=== PATIENT | female | born 1985 | race Caucasian/White ===

== ENCOUNTER 2019-01-22 13:45 | Emergency (ER) | payer BC ==
--- NOTE | 2019-01-22 15:33 | EDM.PDOC ---
ED HPI GENERAL MEDICAL PROBLEM - General Chief Complaint: Neurological Problem Stated Complaint: NUMBNESS ON L SIDE OF FACE Time Seen by Provider: 01/22/19 14:12 Source of Information: Reports: Patient History Limitations: Reports: No Limitations - History of Present Illness INITIAL COMMENTS - FREE TEXT/NARRATIVE: Pt is 33 yo F comes in today for new onset left-sided weakness/numbness of face x 4 hrs. She states she has never had anything like this. She feels that her face and lips feel "funny". She has not had any new changes in medication, and is currently on Lexapro. No h/o HTN, HLD or CVA. Grandmother does have h/o CVA "as she has gotten older". She denies any CRAIG, changes in vision, F/C, N/V/D, difficulty swallowing, difficulty walking, weakness to arms or legs, or any other symptoms at this time. 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 ED EXAM, NEURO - Physical Exam Exam: See Below Exam Limited By: No Limitations General Appearance: Alert, WD/WN, No Apparent Distress Eye Exam: Bilateral Eye: EOMI, Normal Inspection, PERRL Ears: Normal External Exam, Hearing Grossly Normal Nose: Normal Inspection, Normal Mucosa, No Blood Throat/Mouth: Normal Inspection, Normal Lips, Normal Teeth, Normal Gums, Normal Oropharynx, Normal Voice, No Airway Compromise Head Exam: Atraumatic, Normocephalic Neck: Normal Inspection, Supple, Non-Tender, Full Range of Motion Respiratory/Chest: No Respiratory Distress, Lungs Clear, Normal Breath Sounds, No Accessory Muscle Use, Chest Non-Tender Cardiovascular: Normal Peripheral Pulses, Regular Rate, Rhythm, No Edema, No Gallop, No JVD, No Murmur, No Rub GI/Abdominal: Normal Bowel Sounds, Soft, Non-Tender, No Organomegaly, No Distention, No Abnormal Bruit, No Mass Neurological: Alert, Normal Mood/Affect, Normal Dorsiflexion, CN II-XII Intact, Normal Plantar Flexion, Normal Gait, Normal Reflexes, No Motor/Sensory Deficits , Oriented x 3. No: Difficulty Walking Back Exam: Normal Inspection, Full Range of Motion, NT Extremities: Normal Inspection, Normal Range of Motion, Non-Tender, No Pedal Edema, Normal Capillary Refill Psychiatric: Normal Affect, Normal Mood Skin Exam: Warm, Dry, Intact, Normal Color, No Rash Course - Vital Signs Last Recorded V/S: Last Vital Signs Temp 98.4 F 01/22/19 14:04 Pulse 90 01/22/19 14:04 Resp 13 01/22/19 14:04 BP 141/76 H 01/22/19 14:04 Pulse Ox 100 01/22/19 14:04 Departure - Departure Time of Disposition: 15:28 Disposition: Home, Self-Care 01 Condition: Good Clinical Impression: Numbness and tingling of left side of face - Discharge Information *PRESCRIPTION DRUG MONITORING PROGRAM REVIEWED*: Not Applicable *COPY OF PRESCRIPTION DRUG MONITORING REPORT IN PATIENT CARLIE: Not Applicable Instructions: Paresthesia, [id number] Referrals: PCP,None [Primary Care Provider] - Forms: ED Department Discharge Additional Instructions: You were seen in the ED today for left sided weakness/numbness of the face. Your physical exam here was benign, there were no concerns for an acute emergency such as stroke, Ren's Palsy, or infection. At this time, it is recommended you follow up with your primary care provider, Dr. Estes, and staff educator if any changes in vision. Also recommend staying hydrated, with water and/or Gatorade, as sometimes electrolyte imbalances can cause symptoms like this. Please return to ED if new or worsening symptoms.
== END 2019-01-22 15:44 | disposition home or self-care (01) ==
LOC: JD.ED 13:45
DX: R20.2 Paresthesia of skin (principal); R20.0 Anesthesia of skin; Z79.899 Other long term (current) drug therapy
CPT/HCPCS: 99282; 99283

== ENCOUNTER 2020-11-03 07:19 | Inpatient (IN) | payer BC ==
[2020-11-09] MEDS ORDERED: Bupivacaine 0.25% 10 ML SDV ONE
[2020-11-09] MEDS ORDERED: Ampicillin 2 GM in Sodium Chloride 0.9% 100 ML IV ONE (07:49)
[2020-11-09] MEDS ORDERED: Nalbuphine 10 MG/1 ML Vial IVPUSH PRN (07:49)
[2020-11-09] MEDS ORDERED: Ondansetron 4 MG/2 ML SDV IVPUSH PRN ×2 (07:49→10:04)
[2020-11-09] MEDS ORDERED: Sodium Chloride 0.9% 10 ML Syringe FLUSH PRN (07:49)
[2020-11-09] MEDS ORDERED: Oxytocin/Lactated Ringers 10 UNIT/1,000 ML BAG IV SCH ×2 (08:00)
--- NOTE | 2020-11-09 08:33 | PCM.LDHP ---
L&D History of Present Illness - General Date of Service: 11/09/20 Admit Problem/Dx: Patient Status Order with Admit Dx/Problem 11/09/20 07:49 Patient Status [ADT] Routine Admission Diagnosis/Problem Admission Diagnosis/Problem Source of Information: Patient History Limitations: Reports: No Limitations - History of Present Illness Introduction:: Patient is a 35 y/o at 40 6/7 wks who presents for elective IOL. Doing well. 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 (Approximate): Psychiatric History: Reports: Depression - Past Surgical History HEENT Surgical History: Reports: Oral Surgery Social & Family History - Tobacco Use Tobacco Use Status *Q: Never Tobacco User - Caffeine Use Caffeine Use: Reports: Coffee - Alcohol Use Alcohol Use History: No - Recreational Drug Use Recreational Drug Use: No H&P Review of Systems - Review of Systems: Review Of Systems: See Below General: Reports: No Symptoms Pulmonary: Reports: No Symptoms Cardiovascular: Reports: No Symptoms Gastrointestinal: Reports: No Symptoms Genitourinary: Reports: No Symptoms Musculoskeletal: Reports: No Symptoms Psychiatric: Reports: No Symptoms Neurological: Reports: No Symptoms L&D Exam - Exam Exam: See Below - OB Specific Contraction Intensity: Mild Movement: Active Heart Tones: Present Heart Tones per Min: 145 Heart Rate (FHR) Variability: Moderate (6-25 bmp) Presentation: Vertex - Morris Score Morris Score Cervix Position: Midposition Morris Score Consistency: Medium Morris Score Effacement: 31-50% Morris Score Dilation: 1-2 cm Morris Score 's Station: -3 Morris Score Total: 4 - Exam General: Alert, Oriented, Cooperative Lungs: Clear to Auscultation, Normal Respiratory Effort Cardiovascular: Regular Rate, Regular Rhythm GI/Abdominal Exam: Soft, Non-Tender Genitourinary: Normal external exam Extremities: Normal Inspection Skin: Warm, Dry, Intact - Patient Data Lab Results Last 24 hrs: Laboratory Results - last 24 hr 11/09/20 Range/Units 08:02 WBC 11.55 H (3.98-10.04) K/mm3 RBC 4.04 (3.98-5.22) M/mm3 Hgb 11.5 (11.2-15.7) gm/dl Hct 36.0 (34.1-44.9) % MCV 89.1 (79.4-94.8) fl MCH 28.5 (25.6-32.2) pg MCHC 31.9 L (32.2-35.5) g/dl RDW Std Deviation 47.6 H (36.4-46.3) fL Plt Count 289 (182-369) K/mm3 MPV 11.1 (9.4-12.3) fl Neut % (Auto) 69.2 (34.0-71.1) % Lymph % (Auto) 22.3 (19.3-51.7) % [place] % (Auto) 6.5 (4.7-12.5) % Eos % (Auto) 1.4 (0.7-5.8) Baso % (Auto) 0.2 (0.1-1.2) % Neut # (Auto) 8.00 H (1.56-6.13) K/mm3 Lymph # (Auto) 2.57 (1.18-3.74) K/mm3 [place] # (Auto) 0.75 H (0.24-0.36) K/mm3 Eos # (Auto) 0.16 (0.04-0.36) K/mm3 Baso # (Auto) 0.02 (0.01-0.08) K/mm3 Result Diagrams: 11/09/20 08:02 - Problem List (1) Post-dates SNOMED Code(s): 09729650 ICD Code: O48.0 - POST-TERM Status: Acute Current Visit: Yes (2) GBS (group B Streptococcus carrier), +RV culture, currently SNOMED Code(s): 4687581319575, 728533554, 1382625541863 ICD Code: O99.820 - STREPTOCOCCUS B CARRIER STATE COMPLICATING Status: Acute Current Visit: Yes Problem List Initiated/Reviewed/Updated: Yes Orders Last 24hrs: Active Orders 24 hr Category Date Time Status Patient Status [ADT] Routine ADT 11/09/20 07:49 Active Activity as Tolerated [RC] PFP Care 11/09/20 07:49 Active Communication Order [RC] ASDIRECTED Care 11/09/20 07:49 Active Heart Tones [RC] ASDIRECTED Care 11/09/20 07:50 Active Non Stress Test [RC] PER UNIT ROUTINE Care 11/09/20 07:49 Active Notify Provider [RC] PFP Care 11/09/20 07:49 Active Notify Provider [RC] PRN Care 11/09/20 07:49 Active Peripheral IV Care [RC] . DIRECTED Care 11/09/20 07:50 Active Pump Management, Intrathecal [RC] ASDIRECTED Care 11/09/20 07:50 Active Vital Signs [RC] PER UNIT ROUTINE Care 11/09/20 07:49 Active Regular Diet [DIET] Diet 11/09/20 Breakfast Active BLOOD BANK HOLD SPECIMEN [BBK] Stat Lab 11/09/20 08:02 Received CORONAVIRUS COVID-19 CHRISTIANO [MOLEC] Stat Lab 11/09/20 07:54 Ordered RAPID PLASMA REAGIN,RPR [CHEM] Routine Lab 11/09/20 08:02 Received Ampicillin 1 gm Med 11/09/20 12:00 Active Sodium Chloride 0.9% [Normal Saline] 100 ml IV Q4H Lactated Ringers [Ringers, Lactated] 1,000 ml Med 11/09/20 08:00 Active IV ASDIRECTED Nalbuphine [Nubain] Med 11/09/20 07:49 Active 10 mg IVPUSH Q2H PRN Ondansetron [Zofran] Med 11/09/20 07:49 Active 4 mg IVPUSH Q4H PRN Oxytocin/Lactated Ringers [Pitocin in LR 10 Units/1,000 Med 11/09/20 08:00 Active ML] 10 unit in 1,000 ml IV .CONTINUOUS Oxytocin/Lactated Ringers [Pitocin in LR 10 Units/1,000 Med 11/09/20 08:00 Active ML] 10 unit in 1,000 ml IV TITRATE Sodium Chloride 0.9% [Saline Flush] Med 11/09/20 07:49 Active 10 ml FLUSH ASDIRECTED PRN Electronic Heart Tones Ext w TOCO [WOMSER] Oth 11/09/20 07:49 Ordered Routine Electronic Heart Tones Internal [WOMSER] Per Unit Oth 11/09/20 07:49 Ordered Routine Peripheral IV Insertion Adult [OM.PC] Routine Oth 11/09/20 07:49 Ordered Resuscitation Status Routine Resus Stat 11/09/20 07:49 Ordered Medication Orders Ampicillin Sodium 1 gm/ Sodium (Chloride) 100 mls @ 200 mls/hr IV Q4H SUZANNE Oxytocin/Lactated Ringer's (Pitocin In Lr 10 Units/1,000 Ml) 10 unit in 1,000 mls @ 12 mls/hr IV TITRATE SUZANNE; Protocol Oxytocin/Lactated Ringer's (Pitocin In Lr 10 Units/1,000 Ml) 10 unit in 1,000 mls @ 100 mls/hr IV .CONTINUOUS SUZANNE Lactated Ringer's (Ringers, Lactated) 1,000 mls @ 100 mls/hr IV ASDIRECTED SUZANNE Nalbuphine HCl (Nubain) 10 mg IVPUSH Q2H PRN PRN Reason: Pain Ondansetron HCl (Zofran) 4 mg IVPUSH Q4H PRN PRN Reason: Nausea/Vomiting Sodium Chloride (Saline Flush) 10 ml FLUSH ASDIRECTED PRN PRN Reason: Keep Vein Open Assessment/Plan Comment:: * Labs done * GBS positive, start ampicillin * Pitocin and ROM for IOL * Pain management per patient preference * Anticipate
[2020-11-09] MEDS: Lactated Ringers 1,000 ML IV SCH ×3 (09:15→15:25)
[2020-11-09] MEDS ORDERED: Ampicillin 2 GM AdvVial IV ONE (09:16)
[2020-11-09] MEDS ORDERED: Lactated Ringers 1,000 ML ONE (09:17)
[2020-11-09] MEDS ORDERED: fentaNYL 100 MCG/2 ML SDV EPIDUR PRN (10:04)
[2020-11-09] MEDS ORDERED: ePHEDrine 50 MG/ML SDV IVPUSH PRN (10:04)
--- NOTE | 2020-11-09 10:08 | PCM.PREANE ---
Preanesthetic Assessment - Procedure Proposed Procedure: Epidural - Anesthesia/Transfusion/Family Hx Anesthesia History: Prior Anesthesia Reaction Type of Anesthesia Reaction: Excessive Nausea/Vomiting Family History of Anesthesia Reaction: No Transfusion History: No Prior Transfusion(s) Intubation History: Unknown - Review of Systems General: No Symptoms Pulmonary: No Symptoms Cardiovascular: No Symptoms Gastrointestinal: No Symptoms (GERD) Neurological: No Symptoms Other: Reports: None - Physical Assessment NPO Status Date: 11/09/20 NPO Status Time: 10:00 Vital Signs: HR: 64 Sat: 99% B/P: 128/81 Resp: 20 Temp: 99.4 Height: 1.68 m Weight: 108.862 kg ASA Class: 2 Mental Status: Alert & Oriented x3 Airway Class: Mallampati = 3 Dentition: Reports: Normal Dentition, Caries Thyro-Mental Finger Breadths: 3 Mouth Opening Finger Breadths: 3 ROM/Head Extension: Full Lungs: Clear to Auscultation, Normal Respiratory Effort Cardiovascular: Regular Rate, Regular Rhythm, No Murmurs - Lab Values: Laboratory Last Values WBC 11.55 K/mm3 (3.98-10.04) H 11/09/20 08:02 RBC 4.04 M/mm3 (3.98-5.22) 11/09/20 08:02 Hgb 11.5 gm/dl (11.2-15.7) 11/09/20 08:02 Hct 36.0 % (34.1-44.9) 11/09/20 08:02 MCV 89.1 fl (79.4-94.8) 11/09/20 08:02 MCH 28.5 pg (25.6-32.2) 11/09/20 08:02 MCHC 31.9 g/dl (32.2-35.5) L 11/09/20 08:02 RDW Std Deviation 47.6 fL (36.4-46.3) H 11/09/20 08:02 Plt Count 289 K/mm3 (182-369) 11/09/20 08:02 MPV 11.1 fl (9.4-12.3) 11/09/20 08:02 Neut % (Auto) 69.2 % (34.0-71.1) 11/09/20 08:02 Lymph % (Auto) 22.3 % (19.3-51.7) 11/09/20 08:02 [place] % (Auto) 6.5 % (4.7-12.5) 11/09/20 08:02 Eos % (Auto) 1.4 (0.7-5.8) 11/09/20 08:02 Baso % (Auto) 0.2 % (0.1-1.2) 11/09/20 08:02 Neut # (Auto) 8.00 K/mm3 (1.56-6.13) H 11/09/20 08:02 Lymph # (Auto) 2.57 K/mm3 (1.18-3.74) 11/09/20 08:02 [place] # (Auto) 0.75 K/mm3 (0.24-0.36) H 11/09/20 08:02 Eos # (Auto) 0.16 K/mm3 (0.04-0.36) 11/09/20 08:02 Baso # (Auto) 0.02 K/mm3 (0.01-0.08) 11/09/20 08:02 SARS-CoV-2 RNA (CHRISTIANO) Negative (NEGATIVE) 11/09/20 08:45 Above labs reviewed and noted and within acceptable ranges to proceed with epidural. 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: - Past Surgical History HEENT Surgical History: Reports: Oral Surgery - HOME MEDS Home Medications: Home Meds Pnv No.95/Ferrous Fum/Folic AC [ Tablet] 1 tab PO DAILY 11/09/20 [History] - CURRENT (IN HOUSE) MEDS Current Meds: Current Medications Oxytocin/Lactated Ringer's (Pitocin In Lr 10 Units/1,000 Ml) 10 unit in 1,000 mls @ 12 mls/hr IV TITRATE SUZANNE; Protocol Oxytocin/Lactated Ringer's (Pitocin In Lr 10 Units/1,000 Ml) 10 unit in 1,000 mls @ 100 mls/hr IV .CONTINUOUS SUZANNE Lactated Ringer's (Ringers, Lactated) 1,000 mls @ 100 mls/hr IV ASDIRECTED SUZANNE Last Admin: 11/09/20 09:15 Dose: 100 mls/hr Documented by: Ampicillin Sodium 1 gm/ Sodium (Chloride) 100 mls @ 200 mls/hr IV Q4H [facility] Nalbuphine HCl (Nubain) 10 mg IVPUSH Q2H PRN PRN Reason: Pain Ondansetron HCl (Zofran) 4 mg IVPUSH Q4H PRN PRN Reason: Nausea/Vomiting Sodium Chloride (Saline Flush) 10 ml FLUSH ASDIRECTED PRN PRN Reason: Keep Vein Open Discontinued Medications Ampicillin Sodium 2 gm/ Sodium (Chloride) 100 mls @ 200 mls/hr IV ONETIME ONE Stop: 11/09/20 08:18 Last Admin: 11/09/20 09:15 Dose: 200 mls/hr Documented by: Ampicillin Sodium 1 gm/ Sodium (Chloride) 100 mls @ 200 mls/hr IV Q4H [facility]
[2020-11-09] MEDS ORDERED: Bupivacaine/fentaNYL/NS 100 ML Bag EPIDUR SCH (10:15)
[2020-11-09] MEDS ORDERED: Ampicillin 1 GM in Sodium Chloride 0.9% 100 ML IV SCH (12:00)
[2020-11-09] MEDS: Ampicillin 1 GM in Sodium Chloride 0.9% 100 ML IV SCH (13:05)
--- NOTE | 2020-11-09 17:36 | PCM.DEL ---
L & D Note - General Info Date of Service: 11/09/20 - Delivery Note Labor: Induced by ARM, Induced by Oxytocin Delivery Outcome: Livebirth Infant Delivery Method: Spontaneous Vaginal Delivery-Single Infant Delivery Mode: Spontaneous Presentation: Right Occiput Posterior (ROP) Nuchal Cord: Present Anesthesia Type: Epidural Amniotic Fluid Description: Clear Episiotomy Type: None Laceration: None Placenta: Intact, Spontaneous Cord: 3 Vessels Estimated Blood Loss: 100 Resuscitation Needed: Yes : Bulb Syringe, Stimulated, Warmed, [place] Used, Warmer Used Delivery Comments (Free Text/Narrative):: The patient was pushing in the dorsal lithotomy position. Sterile vaginal exam complete/complete/+3 station. head thought to be in JESSICA presentation. Maternal pushing effort was good and the pelvis was felt to be adequate for an instrument assisted delivery. Given recurrent deep variables into the 60's the decision was made to proceed with vacuum assisted vaginal delivery. The mushroom cup was placed without difficulty with care to avoid the vaginal side bailey. Application at 1714. Total pressure applied 550 mm Hg. Total pop offs : 2. Suction was removed following delivery of the head. . The remainder of the delivered without difficulty at 1717. Body nuchal reduced. Infant placed on maternal abdomen. Cord clamped and cut. Cord gas segment obtained. Cord blood obtained. Placenta allowed time to separate and expelled intact. Inspection of the perineum following delivery with no lacerations noted Vacuum Extractor Progress Note - Alternative Labor Strategies Considered Alternative Labor Strategies Considered:: Reports: Yes Strategies Considered:: Reports: Contraction Intensity Adequate Indications Considered:: Reports: Yes Indications:: Reports: Suspicion of Immediate or Potential Compromise Time Out:: Reports: Yes - Patient Prepared Patient Prepared:: Reports: Yes Informed Consent:: Reports: Verbal Risks: Reports: Yes Risks Include:: Reports: Laceration, Shoulder Dystocia, Maternal Injury Anesthesia/Analgesia Adequate:: Reports: Yes - Probability of Success High Probability of Success:: Reports: Yes Weight Estimated:: Reports: AGA Patient Diabetic:: Reports: No Pelvis Adequate:: Reports: Yes Position:: Thought to be JESSICA - was ROP Asynclitic:: Reports: No Station:: +3 - Application Time Maximum Application Time & Number of Pop-Offs Predetermined:: Reports: Yes Maximum Pressure Maintained in [place] (cm Hg):: 550 Total Application Time (min): *max=20min: 4 Number of Times Cup Disengaged:: 2 Type of Vacuum Used:: Reports: Cup: Mushroom type Vacuum Extraction: Successful - Exit Strategy Exit strategy available:: Reports: Yes and resuscitation teams readily available:: Reports: No - General Info Date of Service: 11/09/20 - Patient Data Vitals - Most Recent: Last Vital Signs Temp 36.6 C 11/09/20 09:26 Pulse 64 11/09/20 09:26 Resp 13 11/09/20 09:26 BP 128/81 11/09/20 09:26 Pulse Ox 99 11/09/20 09:26 Weight - Most Recent: 108.862 kg I&O - Last 24 Hours: Intake & Output 11/09/20 11/09/20 11/09/20 06:59 14:59 22:59 Intake Total 1460 Balance 1460 - Problem List & Annotations (1) Post-dates SNOMED Code(s): 33346766 Code(s): O48.0 - POST-TERM Status: Acute Current Visit: Yes (2) GBS (group B Streptococcus carrier), +RV culture, currently SNOMED Code(s): 9283314743635, 691341197, 1799381479861 Code(s): O99.820 - STREPTOCOCCUS B CARRIER STATE COMPLICATING Status: Acute Current Visit: Yes (3) Vacuum-assisted vaginal delivery SNOMED Code(s): 35574211531998921 Code(s): Z37.9 - OUTCOME OF DELIVERY, UNSPECIFIED Status: Acute Current Visit: Yes - Problem List Review Problem List Initiated/Reviewed/Updated: Yes - My Orders Last 24 Hours: My Active Orders 11/09/20 Breakfast Regular Diet [DIET] 11/09/20 07:49 Patient Status [ADT] Routine Activity as Tolerated [RC] PFP Communication Order [RC] ASDIRECTED Non Stress Test [RC] PER UNIT ROUTINE Notify Provider [RC] PFP Notify Provider [RC] PRN Vital Signs [RC] PER UNIT ROUTINE Nalbuphine [Nubain] 10 mg IVPUSH Q2H PRN Ondansetron [Zofran] 4 mg IVPUSH Q4H PRN Sodium Chloride 0.9% [Saline Flush] 10 ml FLUSH ASDIRECTED PRN Electronic Heart Tones Ext w TOCO [WOMSER] Routine Electronic Heart Tones Internal [WOMSER] Per Unit Routine Peripheral IV Insertion Adult [OM.PC] Routine Resuscitation Status Routine 11/09/20 07:50 Heart Tones [RC] ASDIRECTED Peripheral IV Care [RC] . DIRECTED Pump Management, Intrathecal [RC] ASDIRECTED 11/09/20 08:00 Lactated Ringers [Ringers, Lactated] 1,000 ml IV ASDIRECTED Oxytocin/Lactated Ringers [Pitocin in LR 10 Units/1,000 ML] 10 unit in 1,000 ml IV .CONTINUOUS Oxytocin/Lactated Ringers [Pitocin in LR 10 Units/1,000 ML] 10 unit in 1,000 ml IV TITRATE 11/09/20 08:02 BLOOD BANK HOLD SPECIMEN [BBK] Stat RAPID PLASMA REAGIN,RPR [CHEM] Routine 11/09/20 13:00 Ampicillin 1 gm Sodium Chloride 0.9% [Normal Saline] 100 ml IV Q4H - Assessment Assessment:: PPD#0 - Plan Plan:: * Routine cares * Breast feeding * Discharge home in 1-2 days
[2020-11-09] MEDS ORDERED: Witch Hazel Medicated Pads 40/Jar TOP PRN (18:52)
[2020-11-09] MEDS ORDERED: Acetaminophen 325 MG Tab PO PRN (18:52)
[2020-11-09] MEDS ORDERED: Ibuprofen 600 MG Tab PO PRN (18:52)
[2020-11-09] MEDS ORDERED: Benzocaine/Menthol 20%-0.5% Spray 56 GM Canister TOP PRN (18:52)
[2020-11-10] MEDS: Ampicillin 1 GM in Sodium Chloride 0.9% 100 ML IV SCH (04:12)
--- NOTE | 2020-11-10 06:59 | PCM.PNPP ---
- General Info Date of Service: 11/10/20 Functional Status: Reports: Pain Controlled, Tolerating Diet, Ambulating, Urinating - Review of Systems General: Reports: No Symptoms Pulmonary: Reports: No Symptoms Cardiovascular: Reports: No Symptoms Gastrointestinal: Reports: No Symptoms Genitourinary: Reports: No Symptoms Musculoskeletal: Reports: No Symptoms - General Info Date of Service: 11/10/20 - Patient Data Vital Signs - Most Recent: Last Vital Signs Temp 36.8 C 11/10/20 03:29 Pulse 67 11/10/20 03:29 Resp 14 11/10/20 03:29 BP 126/74 11/10/20 03:29 Pulse Ox 97 11/10/20 03:29 Weight - Most Recent: 108.862 kg I&O - Last 24 Hours: Intake & Output 11/09/20 11/09/20 11/10/20 14:59 22:59 06:59 Intake Total 1460 Balance 1460 Lab Results - Last 24 Hours: Laboratory Results - last 24 hr 11/09/20 11/09/20 11/09/20 Range/Units 08:02 08:02 08:45 WBC 11.55 H (3.98-10.04) K/mm3 RBC 4.04 (3.98-5.22) M/mm3 Hgb 11.5 (11.2-15.7) gm/dl Hct 36.0 (34.1-44.9) % MCV 89.1 (79.4-94.8) fl MCH 28.5 (25.6-32.2) pg MCHC 31.9 L (32.2-35.5) g/dl RDW Std Deviation 47.6 H (36.4-46.3) fL Plt Count 289 (182-369) K/mm3 MPV 11.1 (9.4-12.3) fl Neut % (Auto) 69.2 (34.0-71.1) % Lymph % (Auto) 22.3 (19.3-51.7) % [place] % (Auto) 6.5 (4.7-12.5) % Eos % (Auto) 1.4 (0.7-5.8) Baso % (Auto) 0.2 (0.1-1.2) % Neut # (Auto) 8.00 H (1.56-6.13) K/mm3 Lymph # (Auto) 2.57 (1.18-3.74) K/mm3 [place] # (Auto) 0.75 H (0.24-0.36) K/mm3 Eos # (Auto) 0.16 (0.04-0.36) K/mm3 Baso # (Auto) 0.02 (0.01-0.08) K/mm3 RPR Non-reactive (NONREACTIVE) SARS-CoV-2 RNA (CHRISTIANO) Negative (NEGATIVE) Med Orders - Current: Current Medications Acetaminophen (Tylenol) 650 mg PO Q4H PRN PRN Reason: mild pain or fever Benzocaine/Menthol (Dermoplast Pain Relief [place]) 0 gm TOP ASDIRECTED PRN PRN Reason: Perineal Comfort Measure Last Admin: 11/09/20 19:55 Dose: 1 can Documented by: Ibuprofen (Motrin) 600 mg PO Q6H PRN PRN Reason: Mild pain or fever Witch Frank (Tucks) 1 pad TOP ASDIRECTED PRN PRN Reason: Perineal Comfort Measure Last Admin: 11/09/20 19:54 Dose: 1 tub Documented by: Discontinued Medications Ampicillin Sodium (Ampicillin) Confirm Administered Dose 2 gm IV .STK-MED ONE Stop: 11/09/20 09:17 Last Admin: 11/09/20 10:56 Dose: Not Given Documented by: Ephedrine Sulfate (Ephedrine Sulfate) 5 mg IVPUSH ASDIRECTED PRN PRN Reason: Hypotension Fentanyl (Sublimaze) 100 mcg EPIDUR Q3H PRN PRN Reason: Pain Last Admin: 11/09/20 13:53 Dose: 100 mcg Documented by: Fentanyl/Bupivacaine HCl (Fentanyl/Bupivacaine/Ns 2 Mcg-0.125% 100 Ml) 100 ml EPIDUR ASDIRECTED SUZANNE Last Admin: 11/09/20 13:53 Dose: 100 ml Documented by: Ampicillin Sodium 2 gm/ Sodium (Chloride) 100 mls @ 200 mls/hr IV ONETIME ONE Stop: 11/09/20 08:18 Last Admin: 11/09/20 09:15 Dose: 200 mls/hr Documented by: Ampicillin Sodium 1 gm/ Sodium (Chloride) 100 mls @ 200 mls/hr IV Q4H SUZANNE Oxytocin/Lactated Ringer's (Pitocin In Lr 10 Units/1,000 Ml) 10 unit in 1,000 mls @ 12 mls/hr IV TITRATE SUZANNE; Protocol Last Titration: 11/09/20 17:17 Dose: 999 munits/min, 5,994 mls/hr Documented by: Oxytocin/Lactated Ringer's (Pitocin In Lr 10 Units/1,000 Ml) 10 unit in 1,000 mls @ 100 mls/hr IV .CONTINUOUS SUZANNE Lactated Ringer's (Ringers, Lactated) 1,000 mls @ 100 mls/hr IV ASDIRECTED SUZANNE Last Admin: 11/09/20 15:25 Dose: 100 mls/hr Documented by: Ampicillin Sodium 1 gm/ Sodium (Chloride) 100 mls @ 200 mls/hr IV Q4H SUZANNE Last Admin: 11/10/20 04:12 Dose: Not Given Documented by: Lactated Ringer's (Ringers, Lactated) Confirm Administered Dose 1,000 mls @ as directed .ROUTE .STK-MED ONE Stop: 11/09/20 09:18 Last Admin: 11/09/20 10:56 Dose: Not Given Documented by: Miscellaneous Medication (Phenylephrine 1 Mg/10 Ml-Ns) 0 mg IVPUSH ONETIME ONE Stop: 11/09/20 10:05 Last Admin: 11/10/20 04:12 Dose: Not Given Documented by: Nalbuphine HCl (Nubain) 10 mg IVPUSH Q2H PRN PRN Reason: Pain Ondansetron HCl (Zofran) 4 mg IVPUSH Q4H PRN PRN Reason: Nausea/Vomiting Ondansetron HCl (Zofran) 4 mg IVPUSH ONETIME PRN PRN Reason: Nausea/Vomiting Sodium Chloride (Saline Flush) 10 ml FLUSH ASDIRECTED PRN PRN Reason: Keep Vein Open - Interaction Infant Disposition, : in Room with Family Infant Interaction: Holding Feeding: Attempted ; Nursed Fair/Poor Support Person: - Recovery Exam Fundal Tone: Firm Fundal Level: 1 Fingerbreadths Below Umbilicus Fundal Placement: Midline Lochia Amount: Small Lochia Color: Rubra/Red Perineum Description: Edematous Episiotomy/Laceration: None Bladder Status: Voiding Urinary Elimination: Voided - Exam General: Alert, Oriented, Cooperative GI/Abdominal Exam: Soft, Non-Tender Extremities: Normal Inspection Skin: Warm, Dry, Intact - Problem List & Annotations (1) Post-dates SNOMED Code(s): 01609084 Code(s): O48.0 - POST-TERM Status: Acute Current Visit: Yes (2) GBS (group B Streptococcus carrier), +RV culture, currently SNOMED Code(s): 4425181008447, 605852475, 6297128983930 Code(s): O99.820 - STREPTOCOCCUS B CARRIER STATE COMPLICATING Status: Acute Current Visit: Yes (3) Vacuum-assisted vaginal delivery SNOMED Code(s): 34729015677655199 Code(s): Z37.9 - OUTCOME OF DELIVERY, UNSPECIFIED Status: Acute Current Visit: Yes - Problem List Review Problem List Initiated/Reviewed/Updated: Yes - My Orders Last 24 Hours: My Active Orders 11/09/20 07:49 Resuscitation Status Routine 11/09/20 08:02 BLOOD BANK HOLD SPECIMEN [BBK] Stat 11/09/20 Dinner Regular Diet [DIET] 11/09/20 18:52 Acetaminophen [TylenoL] 650 mg PO Q4H PRN Benzocaine/Menthol [Dermoplast Pain Relief [place]] See Dose Instructions TOP ASDIRECTED PRN Ibuprofen [Motrin] 600 mg PO Q6H PRN witch Frank [Tucks] 1 pad TOP ASDIRECTED PRN Heat Therapy [OM.PC] PRN 11/09/20 18:52 Activity as Tolerated [RC] PER UNIT ROUTINE Vital Signs [RC] 03,09,15,21 Assess Lochia [WOMSER] Per Unit Routine Assess Uterine Involution [WOMSER] Per Unit Routine Breast Pump [WOMSER] Per Unit Routine Ice Therapy [OM.PC] Per Unit Routine Perineal Care [OM.PC] Per Unit Routine Peripheral IV Discontinue [OM.PC] Routine Sitz Bath [OM.PC] Per Unit Routine 11/10/20 06:58 Ready for Discharge [RC] PER UNIT ROUTINE 11/10/20 18:52 Heat Therapy [OM.PC] PRN - Assessment Assessment:: PPD#1 - Plan Plan:: * Routine cares * Breast feeding * Discharge home today
--- NOTE | 2020-11-10 06:59 | PCM.DCSUM1 ---
Discharge Summary - Discharge Data Discharge Date: 11/10/20 Discharge Disposition: Home, Self-Care 01 Condition: Good - Referral to Home Health Primary Care Physician: María Sampson MD - Discharge Diagnosis/Problem(s) (1) Post-dates SNOMED Code(s): 58261601 ICD Code: O48.0 - POST-TERM Status: Acute Current Visit: Yes (2) GBS (group B Streptococcus carrier), +RV culture, currently SNOMED Code(s): 7130521310554, 652717350, 2965590591862 ICD Code: O99.820 - STREPTOCOCCUS B CARRIER STATE COMPLICATING Status: Acute Current Visit: Yes (3) Vacuum-assisted vaginal delivery SNOMED Code(s): 15306610497595180 ICD Code: Z37.9 - OUTCOME OF DELIVERY, UNSPECIFIED Status: Acute Current Visit: Yes - Patient Summary/Data Complications: None Consults: None Recommended Follow-up Testing/Procedures: Follow up in 3 weeks for check Hospital Course: 35 y/o at 40 6/7 wks who presented for post dates IOL. This was done with pitocin and AROM. Progressed well. Underwent a VAVD for recurrent variable decelerations. This was uncomplicated. See note. did well and was discharged home on PPD#1 - Patient Instructions Diet: Regular Diet as Tolerated Activity: As Tolerated Activity, Other: Pelvic rest for 6 weeks Driving: May Drive Today Showering/Bathing: May Shower Showering/Bathing, Other: May Bathe Notify Provider of: Fever, Increased Pain, Swelling and Redness, Drainage, Nausea and/or Vomiting - Discharge Plan *PRESCRIPTION DRUG MONITORING PROGRAM REVIEWED*: No *COPY OF PRESCRIPTION DRUG MONITORING REPORT IN PATIENT CARLIE: No Home Medications: Home Meds Pnv No.95/Ferrous Fum/Folic AC [ Tablet] 1 tab PO DAILY 11/09/20 [History] Ibuprofen [Motrin] 600 mg PO Q6H PRN tablet 11/10/20 [Rx] Referrals: María Sampson MD [Primary Care Provider] - (3 weeks for check - can be telehealth ) - Discharge Summary/Plan Comment DC Time >30 min.: No - Patient Data Vitals - Most Recent: Last Vital Signs Temp 36.8 C 11/10/20 03:29 Pulse 67 11/10/20 03:29 Resp 14 11/10/20 03:29 BP 126/74 11/10/20 03:29 Pulse Ox 97 11/10/20 03:29 Weight - Most Recent: 108.862 kg I&O - Last 24 hours: Intake & Output 11/09/20 11/09/20 11/10/20 14:59 22:59 06:59 Intake Total 1460 Balance 1460 Lab Results - Last 24 hrs: Laboratory Results - last 24 hr 11/09/20 11/09/20 11/09/20 Range/Units 08:02 08:02 08:45 WBC 11.55 H (3.98-10.04) K/mm3 RBC 4.04 (3.98-5.22) M/mm3 Hgb 11.5 (11.2-15.7) gm/dl Hct 36.0 (34.1-44.9) % MCV 89.1 (79.4-94.8) fl MCH 28.5 (25.6-32.2) pg MCHC 31.9 L (32.2-35.5) g/dl RDW Std Deviation 47.6 H (36.4-46.3) fL Plt Count 289 (182-369) K/mm3 MPV 11.1 (9.4-12.3) fl Neut % (Auto) 69.2 (34.0-71.1) % Lymph % (Auto) 22.3 (19.3-51.7) % [place] % (Auto) 6.5 (4.7-12.5) % Eos % (Auto) 1.4 (0.7-5.8) Baso % (Auto) 0.2 (0.1-1.2) % Neut # (Auto) 8.00 H (1.56-6.13) K/mm3 Lymph # (Auto) 2.57 (1.18-3.74) K/mm3 [place] # (Auto) 0.75 H (0.24-0.36) K/mm3 Eos # (Auto) 0.16 (0.04-0.36) K/mm3 Baso # (Auto) 0.02 (0.01-0.08) K/mm3 RPR Non-reactive (NONREACTIVE) SARS-CoV-2 RNA (CHRISTIANO) Negative (NEGATIVE) Med Orders - Current: Current Medications Acetaminophen (Tylenol) 650 mg PO Q4H PRN PRN Reason: mild pain or fever Benzocaine/Menthol (Dermoplast Pain Relief [place]) 0 gm TOP ASDIRECTED PRN PRN Reason: Perineal Comfort Measure Last Admin: 11/09/20 19:55 Dose: 1 can Documented by: Ibuprofen (Motrin) 600 mg PO Q6H PRN PRN Reason: Mild pain or fever Witch Rosmery (Tucks) 1 pad TOP ASDIRECTED PRN PRN Reason: Perineal Comfort Measure Last Admin: 11/09/20 19:54 Dose: 1 tub Documented by: Discontinued Medications Ampicillin Sodium (Ampicillin) Confirm Administered Dose 2 gm IV .STK-MED ONE Stop: 11/09/20 09:17 Last Admin: 11/09/20 10:56 Dose: Not Given Documented by: Ephedrine Sulfate (Ephedrine Sulfate) 5 mg IVPUSH ASDIRECTED PRN PRN Reason: Hypotension Fentanyl (Sublimaze) 100 mcg EPIDUR Q3H PRN PRN Reason: Pain Last Admin: 11/09/20 13:53 Dose: 100 mcg Documented by: Fentanyl/Bupivacaine HCl (Fentanyl/Bupivacaine/Ns 2 Mcg-0.125% 100 Ml) 100 ml EPIDUR ASDIRECTED SUZANNE Last Admin: 11/09/20 13:53 Dose: 100 ml Documented by: Ampicillin Sodium 2 gm/ Sodium (Chloride) 100 mls @ 200 mls/hr IV ONETIME ONE Stop: 11/09/20 08:18 Last Admin: 11/09/20 09:15 Dose: 200 mls/hr Documented by: Ampicillin Sodium 1 gm/ Sodium (Chloride) 100 mls @ 200 mls/hr IV Q4H SUZANNE Oxytocin/Lactated Ringer's (Pitocin In Lr 10 Units/1,000 Ml) 10 unit in 1,000 mls @ 12 mls/hr IV TITRATE SUZANNE; Protocol Last Titration: 11/09/20 17:17 Dose: 999 munits/min, 5,994 mls/hr Documented by: Oxytocin/Lactated Ringer's (Pitocin In Lr 10 Units/1,000 Ml) 10 unit in 1,000 mls @ 100 mls/hr IV .CONTINUOUS SUZANNE Lactated Ringer's (Ringers, Lactated) 1,000 mls @ 100 mls/hr IV ASDIRECTED SUZANNE Last Admin: 11/09/20 15:25 Dose: 100 mls/hr Documented by: Ampicillin Sodium 1 gm/ Sodium (Chloride) 100 mls @ 200 mls/hr IV Q4H [facility] Last Admin: 11/10/20 04:12 Dose: Not Given Documented by: Lactated Ringer's (Ringers, Lactated) Confirm Administered Dose 1,000 mls @ as directed .ROUTE .STK-MED ONE Stop: 11/09/20 09:18 Last Admin: 11/09/20 10:56 Dose: Not Given Documented by: Miscellaneous Medication (Phenylephrine 1 Mg/10 Ml-Ns) 0 mg IVPUSH ONETIME ONE Stop: 11/09/20 10:05 Last Admin: 11/10/20 04:12 Dose: Not Given Documented by: Nalbuphine HCl (Nubain) 10 mg IVPUSH Q2H PRN PRN Reason: Pain Ondansetron HCl (Zofran) 4 mg IVPUSH Q4H PRN PRN Reason: Nausea/Vomiting Ondansetron HCl (Zofran) 4 mg IVPUSH ONETIME PRN PRN Reason: Nausea/Vomiting Sodium Chloride (Saline Flush) 10 ml FLUSH ASDIRECTED PRN PRN Reason: Keep Vein Open
--- NOTE | 2020-11-11 05:43 | PCM.PNPP ---
- General Info Date of Service: 11/11/20 Functional Status: Reports: Pain Controlled, Tolerating Diet, Ambulating, Urinating - Review of Systems General: Reports: No Symptoms Pulmonary: Reports: No Symptoms Cardiovascular: Reports: No Symptoms Gastrointestinal: Reports: No Symptoms Genitourinary: Reports: No Symptoms Musculoskeletal: Reports: No Symptoms - Patient Data Vital Signs - Most Recent: Last Vital Signs Temp 36.9 C 11/11/20 03:20 Pulse 73 11/11/20 03:20 Resp 15 11/11/20 03:20 BP 107/74 11/11/20 03:20 Pulse Ox 97 11/11/20 03:20 Weight - Most Recent: 108.862 kg I&O - Last 24 Hours: Intake & Output 11/10/20 11/10/20 11/11/20 14:59 22:59 06:59 Intake Total 420 Balance 420 Med Orders - Current: Current Medications Acetaminophen (Tylenol) 650 mg PO Q4H PRN PRN Reason: mild pain or fever Benzocaine/Menthol (Dermoplast Pain Relief [place]) 0 gm TOP ASDIRECTED PRN PRN Reason: Perineal Comfort Measure Last Admin: 11/09/20 19:55 Dose: 1 can Documented by: Ibuprofen (Motrin) 600 mg PO Q6H PRN PRN Reason: Mild pain or fever Last Admin: 11/10/20 07:43 Dose: 600 mg Documented by: [place] Hernández) 1 pad TOP ASDIRECTED PRN PRN Reason: Perineal Comfort Measure Last Admin: 11/09/20 19:54 Dose: 1 tub Documented by: Discontinued Medications Ampicillin Sodium (Ampicillin) Confirm Administered Dose 2 gm IV .STK-MED ONE Stop: 11/09/20 09:17 Last Admin: 11/09/20 10:56 Dose: Not Given Documented by: Bupivacaine HCl (Sensorcaine-Mpf 0.25%) 10 ml .ROUTE .STK-MED ONE Stop: 11/09/20 00:01 Ephedrine Sulfate (Ephedrine Sulfate) 5 mg IVPUSH ASDIRECTED PRN PRN Reason: Hypotension Fentanyl (Sublimaze) 100 mcg EPIDUR Q3H PRN PRN Reason: Pain Last Admin: 11/09/20 13:53 Dose: 100 mcg Documented by: Fentanyl/Bupivacaine HCl (Fentanyl/Bupivacaine/Ns 2 Mcg-0.125% 100 Ml) 100 ml EPIDUR ASDIRECTED [facility] Last Admin: 11/09/20 13:53 Dose: 100 ml Documented by: Ampicillin Sodium 2 gm/ Sodium (Chloride) 100 mls @ 200 mls/hr IV ONETIME ONE Stop: 11/09/20 08:18 Last Admin: 11/09/20 09:15 Dose: 200 mls/hr Documented by: Ampicillin Sodium 1 gm/ Sodium (Chloride) 100 mls @ 200 mls/hr IV Q4H SUZANNE Oxytocin/Lactated Ringer's (Pitocin In Lr 10 Units/1,000 Ml) 10 unit in 1,000 mls @ 12 mls/hr IV TITRATE SUZANNE; Protocol Last Titration: 11/09/20 17:17 Dose: 999 munits/min, 5,994 mls/hr Documented by: Oxytocin/Lactated Ringer's (Pitocin In Lr 10 Units/1,000 Ml) 10 unit in 1,000 mls @ 100 mls/hr IV .CONTINUOUS SUZANNE Lactated Ringer's (Ringers, Lactated) 1,000 mls @ 100 mls/hr IV ASDIRECTED [facility] Last Admin: 11/09/20 15:25 Dose: 100 mls/hr Documented by: Ampicillin Sodium 1 gm/ Sodium (Chloride) 100 mls @ 200 mls/hr IV Q4H [facility] Last Admin: 11/10/20 04:12 Dose: Not Given Documented by: Lactated Ringer's (Ringers, Lactated) Confirm Administered Dose 1,000 mls @ as directed .ROUTE .STK-MED ONE Stop: 11/09/20 09:18 Last Admin: 11/09/20 10:56 Dose: Not Given Documented by: Miscellaneous Medication (Phenylephrine 1 Mg/10 Ml-Ns) 0 mg IVPUSH ONETIME ONE Stop: 11/09/20 10:05 Last Admin: 11/10/20 04:12 Dose: Not Given Documented by: Nalbuphine HCl (Nubain) 10 mg IVPUSH Q2H PRN PRN Reason: Pain Ondansetron HCl (Zofran) 4 mg IVPUSH Q4H PRN PRN Reason: Nausea/Vomiting Ondansetron HCl (Zofran) 4 mg IVPUSH ONETIME PRN PRN Reason: Nausea/Vomiting Sodium Chloride (Saline Flush) 10 ml FLUSH ASDIRECTED PRN PRN Reason: Keep Vein Open - Interaction Disposition, : [place] in Room with Family Interaction: Holding Infant Feeding: Attempted ; Nursed Fair/Poor Support Person: - Recovery Exam Fundal Tone: Firm Fundal Level: 2 Fingerbreadths Below Umbilicus Fundal Placement: Midline Lochia Amount: Small Lochia Color: Rubra/Red Perineum Description: Intact, Minimal Bruising/Swelling Episiotomy/Laceration: None Bladder Status: Voiding Urinary Elimination: Voided - Exam General: Alert, Oriented, Cooperative GI/Abdominal Exam: Soft, Non-Tender Extremities: Normal Inspection - Problem List & Annotations (1) Post-dates SNOMED Code(s): 65568577 Code(s): O48.0 - POST-TERM Status: Acute Current Visit: Yes (2) GBS (group B Streptococcus carrier), +RV culture, currently SNOMED Code(s): 5638907087176, 561855393, 7753114722666 Code(s): O99.820 - STREPTOCOCCUS B CARRIER STATE COMPLICATING Status: Acute Current Visit: Yes (3) Vacuum-assisted vaginal delivery SNOMED Code(s): 93980326796148844 Code(s): Z37.9 - OUTCOME OF DELIVERY, UNSPECIFIED Status: Acute Current Visit: Yes - Problem List Review Problem List Initiated/Reviewed/Updated: Yes - My Orders Last 24 Hours: My Active Orders 11/10/20 18:52 Heat Therapy [OM.PC] PRN - Assessment Assessment:: PPD#2 - Plan Plan:: * Routine cares * Breast feeding * Was supposed to discharge yesterday, but had to stay admitted until today due to pediatric concerns. Will not discharge today
== END 2020-11-11 15:00 | disposition home or self-care (01) | DRG 560 ==
LOC: EDSTATUS 07:19 → JD.OB 11-09 07:28 → OBSVTOIN 11-09 17:17 → JD.OB 11-09 17:18
PROVIDERS: ADMIT Obstetrics & Gynecology; ATTEND Obstetrics & Gynecology
PROC: 10D07Z6 Extraction of Products of Conception, Vacuum, Via Natural or Artificial Opening (ICD-10-PCS; principal; 2020-11-09)
PROC: 10907ZC Drainage of Amniotic Fluid, Therapeutic from Products of Conception, Via Natural or Artificial Opening (ICD-10-PCS; 2020-11-09)
PROC: 3E033VJ Introduction of Other Hormone into Peripheral Vein, Percutaneous Approach (ICD-10-PCS; 2020-11-09)
PROC: 3E0R3BZ Introduction of Anesthetic Agent into Spinal Canal, Percutaneous Approach (ICD-10-PCS; 2020-11-09)
PROC: 00HU33Z Insertion of Infusion Device into Spinal Canal, Percutaneous Approach (ICD-10-PCS; 2020-11-09)
DX: O48.0 Post-term pregnancy (principal); O99.824 Streptococcus B carrier state complicating childbirth; Z3A.40 40 weeks gestation of pregnancy; Z37.0 Single live birth; Z20.822 Contact with and (suspected) exposure to COVID-19
CPT/HCPCS: 01967; 36415; 51702; 59025; 59409; 85025; 86592; A9270-GY; J0290; J2590; J3010; J3490; J7050; J7120; U0002

== ENCOUNTER 2022-11-06 11:32 | Emergency (ER) | payer BC ==
[2022-11-06] MEDS ORDERED: Sodium Chloride 0.9% 10 ML Syringe FLUSH PRN (12:44)
[2022-11-06] MEDS ORDERED: Alum Hydrox/Mag Hydrox/Simeth 30 ML, Lidocaine 2% 15 ML PO ONE ×2 (12:45)
[2022-11-06] MEDS ORDERED: Ondansetron 4 MG/2 ML SDV IVPUSH ONE (12:45)
[2022-11-06] MEDS ORDERED: Sodium Chloride 0.9% 1,000 ML IV STA (12:45)
[2022-11-06 15:24] LABS: ESTIMATED GFR 118 mL/min (>60)
== END 2022-11-06 16:47 | disposition home or self-care (01) ==
LOC: JD.ED 11:32
DX: O99.611 Diseases of the digestive system complicating pregnancy, first trimester (principal); K80.50 Calculus of bile duct without cholangitis or cholecystitis without obstruction; Z3A.10 10 weeks gestation of pregnancy
CPT/HCPCS: 36415; 76705; 76705-26; 80053; 81001; 82977; 83690; 85025; 86140; 87086; 96361; 96374; 99284-25; A9270-GY; J2405; J3490; J7030

== ENCOUNTER 2022-11-29 10:04 | Day surgery (SDC) | payer BC ==
[~2022-11-29 10:04] MED LIST: Lidocaine 1%/Sod Bicarbonate in NS 8.4% 1 ML Syringe IDERM PRN; Sodium Chloride 0.9% 10 ML Syringe FLUSH PRN; Sodium Chloride 0.9% 10 ML Syringe FLUSH SCH
[2022-11-29] MEDS: Lactated Ringers 1,000 ML IV SCH ×2 (10:34→13:40)
[2022-11-29] MEDS ORDERED: Ondansetron 4 MG/2 ML SDV ONE (10:48)
[2022-11-29] MEDS ORDERED: Propofol 200 MG/20 ML SDV ONE (10:48)
[2022-11-29] MEDS ORDERED: Rocuronium 50 MG/5 ML Vial ONE (10:48)
[2022-11-29] MEDS ORDERED: Lidocaine 1% 4 ML ONE (10:48)
[2022-11-29] MEDS ORDERED: Lactated Ringers 1,000 ML ONE ×2 (10:48→12:05)
[2022-11-29] MEDS ORDERED: Dexamethasone 4 MG/ML SDV ONE (10:49)
[2022-11-29] MEDS ORDERED: fentaNYL 100 MCG/2 ML SDV ONE ×3 (10:50→12:12)
[2022-11-29] MEDS ORDERED: Ondansetron 4 MG/2 ML SDV IVPUSH PRN (10:57)
[2022-11-29] MEDS ORDERED: HYDROmorphone 0.5 MG/0.5 ML Syringe IVPUSH PRN (10:57)
[2022-11-29] MEDS ORDERED: fentaNYL 100 MCG/2 ML SDV IVPUSH PRN (10:57)
[2022-11-29] MEDS ORDERED: Lidocaine 1% 30 ML SDV ONE (11:01)
[2022-11-29] MEDS ORDERED: Bupivacaine 0.5%/EPINEPHrine 1:200,000 50 ML MDV ONE (11:01)
[2022-11-29] MEDS ORDERED: ceFAZolin 2 GM Vial ONE (11:47)
[2022-11-29] MEDS ORDERED: Neostigmine Methylsulfate 10 MG/10 ML MDV ONE (12:10)
[2022-11-29] MEDS ORDERED: Acetaminophen/HYDROcodone 325-5 MG Tab PO ONE (16:01)
== END 2022-11-29 17:25 | disposition home or self-care (01) ==
LOC: JD.SDS 10:04
PROVIDERS: ATTEND Surgery
DX: K80.10 Calculus of gallbladder with chronic cholecystitis without obstruction (principal); K82.8 Other specified diseases of gallbladder; F32.A Depression, unspecified; G51.0 Bell's palsy; Z79.899 Other long term (current) drug therapy; Z88.8 Allergy status to other drugs, medicaments and biological substances; Z98.890 Other specified postprocedural states
CPT/HCPCS: 47562; A9270; J0690; J1100; J2405; J2704; J2710; J3010; J3490; J7120

== ENCOUNTER 2023-06-01 22:01 | Inpatient (IN) | payer BC ==
[2023-06-01] MEDS ORDERED: Sodium Chloride 0.9% 10 ML Syringe FLUSH PRN (22:45)
[2023-06-01] MEDS ORDERED: Lidocaine 1% 50 ML MDV INJECT PRN (22:45)
[2023-06-01] MEDS ORDERED: Nalbuphine 10 MG/0.5 ML Syringe IVPUSH PRN (22:45)
[2023-06-01] MEDS ORDERED: Ondansetron 4 MG/2 ML SDV IVPUSH PRN (22:45)
[2023-06-01] MEDS: Lactated Ringers 1,000 ML IV SCH (22:45)
[2023-06-01] MEDS ORDERED: Calcium Carbonate 500 MG Tab.Chew PO PRN (22:45)
[2023-06-01] MEDS ORDERED: Oxytocin/Lactated Ringers 10 UNIT/1,000 ML BAG IV SCH (22:45)
[2023-06-01] MEDS ORDERED: diphenhydrAMINE 50 MG/ML SDV IVPUSH PRN (22:53)
[2023-06-01] MEDS ORDERED: ePHEDrine 50 MG/ML SDV IVPUSH PRN (22:53)
[2023-06-01] MEDS ORDERED: Bupivacaine/fentaNYL/NS 100 ML Bag EPIDUR PRN (22:53)
[2023-06-01] MEDS ORDERED: fentaNYL 100 MCG/2 ML SDV EPIDUR PRN (22:53)
[2023-06-01 22:56] LABS: BASOPHILS ABSOLUTE AUTO 0.04 K/mm3 (0.01-0.08); BASOPHILS PERCENT AUTO 0.3 % (0.1-1.2); EOSINOPHILS ABSOLUTE AUTO 0.09 K/mm3 (0.04-0.36); EOSINOPHILS PERCENT AUTO 0.7 (0.7-5.8); HEMATOCRIT 38.6 % (34.1-44.9); HEMOGLOBIN 12.9 gm/dl (11.2-15.7); IMMATURE GRAN ABSOLUTE AUTO 0.06 K/mm3 (0.00-0.10); IMMATURE GRAN PERCENT AUTO 0.5 % (<=1.0); LYMPHOCYTES ABSOLUTE AUTO 2.18 K/mm3 (1.18-3.74); LYMPHOCYTES PERCENT AUTO 16.4 % (19.3-51.7); MEAN CORPUSCULAR HEMOGLOBIN 30.7 pg (25.6-32.2); MEAN CORPUSCULAR HGB CONC 33.4 g/dl (32.2-35.5); MEAN CORPUSCULAR VOLUME 91.9 fl (79.4-94.8); MEAN PLATELET VOLUME 11.6 fl (9.4-12.3); MONOCYTES ABSOLUTE AUTO 0.86 K/mm3 (0.24-0.36); MONOCYTES PERCENT AUTO 6.5 % (4.7-12.5); NEUTROPHILS ABSOLUTE AUTO 10.09 K/mm3 (1.56-6.13); NEUTROPHILS PERCENT AUTO 75.6 % (34.0-71.1); PLATELET COUNT,PLT 222 K/mm3 (182-369); WHITE BLOOD CELL COUNT,WBC 13.32 K/mm3 (3.98-10.04)
[2023-06-02] MEDS ORDERED: Bupivacaine 0.25% 10 ML SDV ONE ×2
[2023-06-02] MEDS: Lactated Ringers 1,000 ML IV SCH (00:06)
[2023-06-02] MEDS ORDERED: Oxytocin/Lactated Ringers 10 UNIT/1,000 ML BAG IV SCH (02:05)
[2023-06-02] MEDS ORDERED: Hydrocortisone Acetate 25 MG Supp RECTAL PRN (02:05)
[2023-06-02] MEDS ORDERED: Docusate Sodium 100 MG Cap PO PRN (02:05)
[2023-06-02] MEDS ORDERED: Ibuprofen 600 MG Tab PO PRN (02:05)
[2023-06-02] MEDS ORDERED: Witch Hazel Medicated Pads 40/Jar TOP PRN (02:05)
[2023-06-02] MEDS ORDERED: Acetaminophen 325 MG Tab PO PRN (02:05)
[2023-06-02] MEDS ORDERED: Benzocaine/Menthol 20%-0.5% Spray 78 GM Cannister TOP PRN (02:05)
[2023-06-02] MEDS ORDERED: Magnesium Hydroxide 400 MG/5 ML Susp 30 ML Cup PO PRN (02:05)
[2023-06-02] MEDS: buPROPion 150 MG Tab.ER PO SCH (08:44)
[2023-06-02] MEDS: Prenatal Multivitamin with Calcium/Folic Acid/Iron Tab PO SCH (08:44)
[2023-06-02] MEDS ORDERED: Sodium Chloride 0.9% 10 ML Syringe FLUSH SCH (09:00)
[2023-06-03] MEDS: Prenatal Multivitamin with Calcium/Folic Acid/Iron Tab PO SCH (09:12)
[2023-06-03] MEDS: buPROPion 150 MG Tab.ER PO SCH (09:12)
== END 2023-06-03 12:38 | disposition home or self-care (01) | DRG 560 ==
LOC: JD.OBCHECK 22:01 → JD.OB 22:01 → JD.OBCHECK 22:44 → JD.OB 22:45 → OBSVTOIN 06-02 00:54 → JD.OB 06-02 17:28
PROVIDERS: ADMIT Obstetrics & Gynecology; ATTEND Obstetrics & Gynecology
PROC: 10E0XZZ Delivery of Products of Conception, External Approach (ICD-10-PCS; principal; 2023-06-02)
PROC: 3E0R3BZ Introduction of Anesthetic Agent into Spinal Canal, Percutaneous Approach (ICD-10-PCS; 2023-06-02)
PROC: 00HU33Z Insertion of Infusion Device into Spinal Canal, Percutaneous Approach (ICD-10-PCS; 2023-06-02)
PROC: 10907ZC Drainage of Amniotic Fluid, Therapeutic from Products of Conception, Via Natural or Artificial Opening (ICD-10-PCS; 2023-06-02)
PROC: 3E033VJ Introduction of Other Hormone into Peripheral Vein, Percutaneous Approach (ICD-10-PCS; 2023-06-02)
DX: O48.0 Post-term pregnancy (principal); Z3A.40 40 weeks gestation of pregnancy; O77.0 Labor and delivery complicated by meconium in amniotic fluid; O99.344 Other mental disorders complicating childbirth; F32.A Depression, unspecified; Z88.8 Allergy status to other drugs, medicaments and biological substances; Z79.899 Other long term (current) drug therapy; Z90.49 Acquired absence of other specified parts of digestive tract; Z37.0 Single live birth
CPT/HCPCS: 36415; 59025; 59409; 85025; 86592; 86850; 86900; 86901; A9270-GY; J2590; J3010; J3490; J7120

== ENCOUNTER 2025-09-06 00:13 | Emergency (ER) | payer BC ==
[2025-09-06] MEDS: Ketorolac 30 MG/ML SDV IVPUSH ONE (01:09)
[2025-09-06] MEDS: methylPREDNISolone Sodium Succinate 125 MG/2 ML SDV IVPUSH ONE (01:10)
[2025-09-06] MEDS ORDERED: Naloxone 0.4 MG/ML SDV IVPUSH PRN (02:01)
[2025-09-06 03:31] LABS: APPEARANCE,URINE CLEAR (Clear); GLUCOSE,URINE TRACE (Negative); OCCULT BLOOD,URINE 2+ (Negative)
[2025-09-06 03:39] LABS: SQUAMOUS EPITHELIAL CELLS,UR 20-30 /hpf (0-5)
== END 2025-09-06 03:21 ==
LOC: JD.ED 00:13
DX: M51.16 Intervertebral disc disorders with radiculopathy, lumbar region (principal); Z88.8 Allergy status to other drugs, medicaments and biological substances; Z90.49 Acquired absence of other specified parts of digestive tract; Z79.899 Other long term (current) drug therapy
CPT/HCPCS: 72131; 81001; 87086; 96374; 96375; 99284; J1885; J2270; J2919; J7030